=== PATIENT | male | born 1955 | race Two or more races ===

== ENCOUNTER → 2017-11-06 15:49 | Outpatient (CLI) | payer OTHER, SELFPAY ==
--- NOTE | 2017-11-06 11:35 | TEM_PTH ---
PATIENT: BYRON WILBURN LOC: [facility] U#:[id number] AGE/SX: 70/M ROOM: RE11/06/[address]: Dr. Miquel Gutierrez MD : [id number] BED: DIS: SPEC #: [id number] RECD: 11/06/17 15:42 STATUS: ERIK TORIE #: [id number] STAR: 11/06/17 11:[address]: Miquel Gutierrez DEPT: SURGICAL PATHOLOGY RECD BY: Eliceo Rabago Tissues: Temporal region Procedures: Elastin Stain (control) Special Stain Group II Surgery Specimen Level IV HEADER OPERATION: Temporal artery biopsy, left PRE-OP DIAGNOSIS: Increased sed rate, visual disturbance TISSUE SUBMITTED: Portion left temporal artery MICROSCOPIC DIAGNOSIS Portion left temporal artery, biopsy: Negative for giant cell arteritis. Mild intimal hyperplasia. SJ:keyana 11/08/17 COMMENT Elastic stain with matched control is used in the evaluation of the specimen. MICROSCOPIC DESCRIPTION Slides are reviewed. GROSS DESCRIPTION Received in fixative is one container labeled with the patient's name and designated portion left temporal artery. The specimen consists of a tubular piece of rodriguez soft tissue measuring 0.3 cm in length and 0.3 cm in diameter. The specimen is totally submitted in one cassette. / SJ:rg 11/07/17 TC:5 [facility]: [id number]
== END ==
PROVIDERS: Visit Provider Ophthalmology
DX: I77.89 Other specified disorders of arteries and arterioles (principal)
CPT/HCPCS: 88305; 88313